=== PATIENT | female | born 1945 | race Caucasian/White ===

== ENCOUNTER 2019-06-10 21:52 | Inpatient (IN) | payer BC ==
[2019-06-11] MEDS ORDERED: ONDANSETRON 4 MG INJ IV (00:30)
[2019-06-11] MEDS ORDERED: morphine 2 MG INJ IV (00:30)
[2019-06-11] MEDS: CEFTRIAXONE 1 GM/50 ML (PMX) 50 ML IVPB ×2 (01:08→23:59)
[2019-06-11] MEDS: SOD CHLORIDE 0.9% 1,000 ML IV ×2 (01:08→11:59)
[2019-06-11] MEDS: ENOXAPARIN 40 MG/0.4 ML SYG SC (08:47)
[2019-06-11 10:12] LABS: ADD MAN DIFF? NO
[2019-06-11 10:20] LABS: BASOPHILS % 0.3 % (0.0-2.0); EOSINOPHILS # 0.1 10^3/ul (0.0-0.5); EOSINOPHILS % 1.8 % (0.0-7.0); HEMATOCRIT 30.5 % (37.0-47.0); HEMOGLOBIN 9.1 g/dl (12.0-16.0); LYMPHOCYTES # 1.1 10^3/ul (0.8-2.9); LYMPHOCYTES % 18.3 % (15.0-51.0); MEAN CORPUSCULAR HGB CONC 29.8 g/dl (32.0-37.0); MEAN CORPUSCULAR VOLUME 93.8 fl (82.0-101.0); MEAN PLATELET VOLUME 10.2 fl (7.4-10.4); MONOCYTE # 0.7 10^3/ul (0.3-0.9); MONOCYTES % 11.5 % (0.0-11.0); NEUTROPHIL # 4.1 10^3/ul (1.6-7.5); NEUTROPHILS % 67.8 % (39.0-77.0); PLATELET COUNT 284 10^3/UL (140-415); RED BLOOD COUNT 3.25 10^6/ul (4.20-5.40); RED CELL DISTRIBUTION WIDTH 15.8 % (11.5-14.5)
[2019-06-11] MEDS: IOHEXOL 14.3 MG(I)/ML (ADULT) BTL PO (10:28)
[2019-06-11 10:34] LABS: ANION GAP 6 (5-13); BLOOD UREA NITROGEN 10 mg/dl (7-20); CARBON DIOXIDE 26 mmol/L (21-31); CHLORIDE 107 mmol/L (97-110); CREATININE 0.72 mg/dl (0.44-1.00); GLUCOSE 92 mg/dl (70-220); POTASSIUM 3.5 mmol/L (3.5-5.1); SODIUM 139 mmol/L (135-144)
[2019-06-11 10:59] LABS: CALCIUM 14.3 mg/dl (8.4-10.2)
[2019-06-11] MEDS: SOD CHLORIDE 0.9% 100 ML (13:30)
[2019-06-11] MEDS: IOHEXOL 300MG/ML 150 ML BTL (13:31)
[2019-06-11] MEDS: PAMIDRONATE 60 MG in SOD CHLORIDE 0.9% 500 ML IV (14:30)
[2019-06-11] MEDS: ACETAMINOPHEN 325 MG TAB PO (23:59)
[2019-06-12] MEDS: SOD CHLORIDE 0.9% 1,000 ML IV ×4 (04:16→22:02)
[2019-06-12 05:58] LABS: ADD MAN DIFF? NO
[2019-06-12 06:06] LABS: BASOPHILS % 0.4 % (0.0-2.0); EOSINOPHILS # 0.2 10^3/ul (0.0-0.5); EOSINOPHILS % 2.8 % (0.0-7.0); HEMATOCRIT 27.4 % (37.0-47.0); HEMOGLOBIN 8.5 g/dl (12.0-16.0); LYMPHOCYTES # 1.2 10^3/ul (0.8-2.9); MEAN CORPUSCULAR HEMOGLOBIN 28.9 pg (29.0-33.0); MEAN CORPUSCULAR VOLUME 93.2 fl (82.0-101.0); MEAN PLATELET VOLUME 10.3 fl (7.4-10.4); MONOCYTE # 0.6 10^3/ul (0.3-0.9); MONOCYTES % 11.3 % (0.0-11.0); NEUTROPHIL # 3.3 10^3/ul (1.6-7.5); NEUTROPHILS % 62.1 % (39.0-77.0); PLATELET COUNT 253 10^3/UL (140-415); RED BLOOD COUNT 2.94 10^6/ul (4.20-5.40); RED CELL DISTRIBUTION WIDTH 15.5 % (11.5-14.5)
[2019-06-12 06:06] LABS: WHITE BLOOD COUNT 5.4 10^3/ul (4.8-10.8)
[2019-06-12 06:30] LABS: ANION GAP 5 (5-13); BLOOD UREA NITROGEN 8 mg/dl (7-20); CARBON DIOXIDE 26 mmol/L (21-31); CHLORIDE 105 mmol/L (97-110); CREATININE 0.57 mg/dl (0.44-1.00); GLUCOSE 89 mg/dl (70-220); POTASSIUM 3.2 mmol/L (3.5-5.1); SODIUM 136 mmol/L (135-144)
[2019-06-12 06:32] LABS: CALCIUM 13.6 mg/dl (8.4-10.2)
[2019-06-12 08:37] LABS: IONIZED CALCIUM 1.9 mmol/L (1.1-1.4)
[2019-06-12] MEDS: ENOXAPARIN 40 MG/0.4 ML SYG SC (08:43)
[2019-06-12] MEDS: AMLODIPINE 5 MG TAB PO ×2 (12:16→20:50)
[2019-06-12] MEDS: POTASSIUM CHLORIDE (SR) 20 MEQ TAB PO ×3 (12:34→20:50)
[2019-06-12] MEDS: ACETAMINOPHEN 325 MG TAB PO (18:29)
[2019-06-13] MEDS: CEFTRIAXONE 1 GM/50 ML (PMX) 50 ML IVPB (00:37)
[2019-06-13 07:20] LABS: ANION GAP 3 (5-13); BLOOD UREA NITROGEN 7 mg/dl (7-20); CARBON DIOXIDE 27 mmol/L (21-31); CHLORIDE 107 mmol/L (97-110); CREATININE 0.58 mg/dl (0.44-1.00); GLUCOSE 85 mg/dl (70-220); POTASSIUM 4.5 mmol/L (3.5-5.1); SODIUM 137 mmol/L (135-144)
[2019-06-13 07:22] LABS: CALCIUM 13.5 mg/dl (8.4-10.2)
[2019-06-13] MEDS: SOD CHLORIDE 0.9% 1,000 ML IV ×3 (07:45→20:59)
[2019-06-13] MEDS: ENOXAPARIN 40 MG/0.4 ML SYG SC (08:17)
[2019-06-13] MEDS: AMLODIPINE 5 MG TAB PO ×2 (08:18→21:22)
[2019-06-13] MEDS: PAMIDRONATE 90 MG in SOD CHLORIDE 0.9% 500 ML IV (13:07)
[2019-06-13] MEDS: BALSAM PERU/CASTOR OIL 60 GM TUBE TOP (15:45)
[2019-06-13] MEDS: traMADol 50 MG TAB PO (16:16)
[2019-06-13] MEDS: LACTULOSE 30ML CUP PO (17:01)
[2019-06-14] MEDS: CEFTRIAXONE 1 GM/50 ML (PMX) 50 ML IVPB (01:23)
[2019-06-14] MEDS: BALSAM PERU/CASTOR OIL 60 GM TUBE TOP (08:43)
[2019-06-14] MEDS: AMLODIPINE 5 MG TAB PO (08:43)
[2019-06-14] MEDS: traMADol 50 MG TAB PO (08:52)
[2019-06-14] MEDS: ENOXAPARIN 30 MG/0.3 ML SYG SC (09:24)
== END 2019-06-14 20:00 | DRG 641 ==
LOC: TEL 06-13 06:06
DX: E83.52 Hypercalcemia (principal); C34.92 Malignant neoplasm of unspecified part of left bronchus or lung; N39.0 Urinary tract infection, site not specified; C79.9 Secondary malignant neoplasm of unspecified site; I10 Essential (primary) hypertension
CPT/HCPCS: 70551; 71260; 74177; 80048; 82310; 82330; 83970; 85025; 97110; 97162; J2430

== ENCOUNTER 2019-06-17 13:39 | Inpatient (IN) | payer BC ==
[2019-06-17 14:15] LABS: ADD MAN DIFF? NO
[2019-06-17 14:20] LABS: WHITE BLOOD COUNT 6.1 10^3/ul (4.8-10.8)
[2019-06-17 14:20] LABS: BASOPHILS % 0.2 % (0.0-2.0); EOSINOPHILS # 0.1 10^3/ul (0.0-0.5); EOSINOPHILS % 1.6 % (0.0-7.0); HEMATOCRIT 28.5 % (37.0-47.0); HEMOGLOBIN 8.9 g/dl (12.0-16.0); LYMPHOCYTES # 1.6 10^3/ul (0.8-2.9); LYMPHOCYTES % 25.9 % (15.0-51.0); MEAN CORPUSCULAR HEMOGLOBIN 28.6 pg (29.0-33.0); MEAN CORPUSCULAR HGB CONC 31.2 g/dl (32.0-37.0); MEAN CORPUSCULAR VOLUME 91.6 fl (82.0-101.0); MEAN PLATELET VOLUME 9.8 fl (7.4-10.4); MONOCYTE # 0.7 10^3/ul (0.3-0.9); MONOCYTES % 11.6 % (0.0-11.0); NEUTROPHIL # 3.7 10^3/ul (1.6-7.5); NEUTROPHILS % 60.4 % (39.0-77.0); PLATELET COUNT 252 10^3/UL (140-415); RED BLOOD COUNT 3.11 10^6/ul (4.20-5.40); RED CELL DISTRIBUTION WIDTH 15.6 % (11.5-14.5)
[2019-06-17 14:38] LABS: ANION GAP 5 (5-13); BLOOD UREA NITROGEN 12 mg/dl (7-20); CARBON DIOXIDE 32 mmol/L (21-31); CHLORIDE 97 mmol/L (97-110); CREATININE 0.79 mg/dl (0.44-1.00); GLUCOSE 120 mg/dl (70-220); POTASSIUM 3.9 mmol/L (3.5-5.1); SODIUM 134 mmol/L (135-144)
[2019-06-17 14:50] LABS: TROPONIN-I 0.025 ng/ml (0.000-0.120)
[2019-06-17 14:56] LABS: CALCIUM 15.2 mg/dl (8.4-10.2)
[2019-06-17 14:58] LABS: IONIZED CALCIUM 2.2 mmol/L (1.1-1.4)
[2019-06-17] MEDS: SOD CHLORIDE 0.9% 1,000 ML IV (15:11)
[2019-06-17] MEDS ORDERED: ACETAMINOPHEN 325 MG TAB PO ×2 (16:00→16:30)
[2019-06-17] MEDS ORDERED: ONDANSETRON 4 MG INJ IV (16:00)
[2019-06-17] MEDS ORDERED: LACTULOSE 30ML CUP PO (16:30)
[2019-06-17] MEDS ORDERED: BISACODYL 10 MG SUPP PR (16:30)
[2019-06-17] MEDS ORDERED: ZOLPIDEM 5 MG TAB PO (16:30)
[2019-06-17] MEDS ORDERED: NA PHOSPHATE/BIPHOS 133 ML ENEMA PR (16:30)
[2019-06-17] MEDS: ZOLEDRONIC ACID 3 MG in SOD CHLORIDE 0.9% 100 ML IVPB (17:42)
[2019-06-17] MEDS: CALCITONIN SALMON INJ 200 UNITS/ML SYG SC (18:19)
[2019-06-17] MEDS: ENOXAPARIN 30 MG/0.3 ML SYG SC (18:19)
[2019-06-17] MEDS: ONDANSETRON 4 MG INJ IV (18:38)
[2019-06-17] MEDS: AMLODIPINE 5 MG TAB PO (21:58)
[2019-06-18 06:21] LABS: CALCIUM 14.3 mg/dl (8.4-10.2)
[2019-06-18] MEDS: SOD CHLORIDE 0.9% 1,000 ML IV ×2 (06:46→16:08)
[2019-06-18] MEDS: AMLODIPINE 5 MG TAB PO ×2 (09:16→21:22)
[2019-06-18] MEDS: CALCITONIN SALMON INJ 200 UNITS/ML SYG SC (10:55)
[2019-06-18] MEDS: ENOXAPARIN 30 MG/0.3 ML SYG SC (12:26)
[2019-06-18] MEDS: traMADol 50 MG TAB PO ×2 (16:13→22:41)
[2019-06-18] MEDS: FAMOTIDINE 20 MG TAB PO (21:22)
[2019-06-19] MEDS: SOD CHLORIDE 0.9% 1,000 ML IV ×2 (02:04→13:31)
[2019-06-19 05:17] LABS: ADD MAN DIFF? NO
[2019-06-19 05:19] LABS: BASOPHILS % 0.5 % (0.0-2.0); EOSINOPHILS # 0.1 10^3/ul (0.0-0.5); EOSINOPHILS % 2.1 % (0.0-7.0); LYMPHOCYTES # 1.4 10^3/ul (0.8-2.9); LYMPHOCYTES % 23.2 % (15.0-51.0); MEAN CORPUSCULAR HEMOGLOBIN 28.7 pg (29.0-33.0); MEAN CORPUSCULAR HGB CONC 30.8 g/dl (32.0-37.0); MEAN CORPUSCULAR VOLUME 93.2 fl (82.0-101.0); MEAN PLATELET VOLUME 10.3 fl (7.4-10.4); MONOCYTE # 0.8 10^3/ul (0.3-0.9); MONOCYTES % 12.6 % (0.0-11.0); NEUTROPHIL # 3.8 10^3/ul (1.6-7.5); NEUTROPHILS % 61.4 % (39.0-77.0); PLATELET COUNT 241 10^3/UL (140-415); RED BLOOD COUNT 2.79 10^6/ul (4.20-5.40); RED CELL DISTRIBUTION WIDTH 15.5 % (11.5-14.5)
[2019-06-19 05:19] LABS: WHITE BLOOD COUNT 6.1 10^3/ul (4.8-10.8)
[2019-06-19 05:53] LABS: ALANINE AMINOTRANSFERASE 12 IU/L (13-69); ALBUMIN 2.8 g/dl (3.3-4.9); ALBUMIN/GLOBULIN RATIO 0.84; ALKALINE PHOSPHATASE 54 IU/L (42-121); ANION GAP 5 (5-13); ASPARTATE AMINO TRANSFERASE 22 IU/L (15-46); BILIRUBIN,INDIRECT 0.2 mg/dl (0-1.1); BILIRUBIN,TOTAL 0.2 mg/dl (0.2-1.3); BLOOD UREA NITROGEN 9 mg/dl (7-20); CARBON DIOXIDE 26 mmol/L (21-31); CHLORIDE 108 mmol/L (97-110); CREATININE 0.72 mg/dl (0.44-1.00); GLUCOSE 87 mg/dl (70-220); POTASSIUM 3.4 mmol/L (3.5-5.1); SODIUM 139 mmol/L (135-144); TOTAL PROTEIN 6.1 g/dl (6.1-8.1)
[2019-06-19 05:56] LABS: CALCIUM 13.3 mg/dl (8.4-10.2)
[2019-06-19] MEDS: FAMOTIDINE 20 MG TAB PO ×2 (09:19→22:01)
[2019-06-19] MEDS: AMLODIPINE 5 MG TAB PO ×2 (09:20→22:01)
[2019-06-19] MEDS: ENOXAPARIN 30 MG/0.3 ML SYG SC (09:22)
[2019-06-19] MEDS: CALCITONIN SALMON INJ 200 UNITS/ML SYG SC (10:00)
[2019-06-19] MEDS ORDERED: POTASSIUM CHLORIDE 20 MEQ in SOD CHLORIDE 0.9% 1,000 ML IV (14:22)
[2019-06-19] MEDS: NS + KCL 20 MEQ 1,000 ML IV (16:47)
[2019-06-19] MEDS: traMADol 50 MG TAB PO (16:50)
[2019-06-20] MEDS: NS + KCL 20 MEQ 1,000 ML IV ×2 (04:07→11:00)
[2019-06-20] MEDS: FAMOTIDINE 20 MG TAB PO (08:43)
[2019-06-20] MEDS: AMLODIPINE 5 MG TAB PO (08:43)
[2019-06-20] MEDS: ENOXAPARIN 30 MG/0.3 ML SYG SC (08:48)
[2019-06-20 08:53] LABS: CALCIUM 12.8 mg/dl (8.4-10.2)
[2019-06-20] MEDS: CALCITONIN SALMON INJ 200 UNITS/ML SYG SC (11:05)
[2019-06-20] MEDS: ONDANSETRON 4 MG INJ IV (12:07)
[2019-06-20] MEDS: traMADol 50 MG TAB PO (12:13)
== END 2019-06-20 18:49 | DRG 641 ==
LOC: E/R 13:39 → PP2 15:59
DX: E83.52 Hypercalcemia (principal); C34.90 Malignant neoplasm of unspecified part of unspecified bronchus or lung; E44.1 Mild protein-calorie malnutrition; R64 Cachexia; Z68.20 Body mass index [BMI] 20.0-20.9, adult; I10 Essential (primary) hypertension; K59.00 Constipation, unspecified; D50.9 Iron deficiency anemia, unspecified; R44.1 Visual hallucinations
CPT/HCPCS: 36415; 80048; 80053; 82310; 82330; 84484; 85025; 87081; 93005; 96360; 99285-25

== ENCOUNTER 2019-07-03 12:47 | Inpatient (IN) | payer BC ==
[2019-07-03 13:10] LABS: ADD MAN DIFF? NO
[2019-07-03 13:13] LABS: BASOPHILS % 0.1 % (0.0-2.0); EOSINOPHILS % 0.1 % (0.0-7.0); HEMATOCRIT 33.7 % (37.0-47.0); HEMOGLOBIN 10.5 g/dl (12.0-16.0); LYMPHOCYTES # 1.4 10^3/ul (0.8-2.9); LYMPHOCYTES % 9.2 % (15.0-51.0); MEAN CORPUSCULAR HEMOGLOBIN 28.1 pg (29.0-33.0); MEAN CORPUSCULAR HGB CONC 31.2 g/dl (32.0-37.0); MEAN CORPUSCULAR VOLUME 90.1 fl (82.0-101.0); MEAN PLATELET VOLUME 9.8 fl (7.4-10.4); MONOCYTE # 1.2 10^3/ul (0.3-0.9); NEUTROPHILS % 82.2 % (39.0-77.0); PLATELET COUNT 259 10^3/UL (140-415); RED BLOOD COUNT 3.74 10^6/ul (4.20-5.40); RED CELL DISTRIBUTION WIDTH 15.9 % (11.5-14.5)
[2019-07-03 13:13] LABS: WHITE BLOOD COUNT 14.7 10^3/ul (4.8-10.8)
[2019-07-03 13:32] LABS: ALANINE AMINOTRANSFERASE 12 IU/L (13-69); ALBUMIN 3.9 g/dl (3.3-4.9); ALKALINE PHOSPHATASE 80 IU/L (42-121); ANION GAP 8 (5-13); ASPARTATE AMINO TRANSFERASE 27 IU/L (15-46); BILIRUBIN,INDIRECT 0.5 mg/dl (0-1.1); BILIRUBIN,TOTAL 0.5 mg/dl (0.2-1.3); BLOOD UREA NITROGEN 28 mg/dl (7-20); CARBON DIOXIDE 33 mmol/L (21-31); CHLORIDE 98 mmol/L (97-110); CREATININE 1.11 mg/dl (0.44-1.00); GLUCOSE 120 mg/dl (70-220); LIPASE 43 U/L (23-300); SODIUM 139 mmol/L (135-144); TOTAL PROTEIN 7.8 g/dl (6.1-8.1)
[2019-07-03 13:33] LABS: INR 0.96; PROTIME 12.9 Sec (11.9-14.9)
[2019-07-03] MEDS: SOD CHLORIDE 0.9% 1,000 ML IV ×3 (13:33→20:13)
[2019-07-03] MEDS: ONDANSETRON 4 MG INJ IV (13:33)
[2019-07-03 13:38] LABS: ADD UMIC YES; UR ASCORBIC ACID 20 mg/dL (NEGATIVE); UR BACTERIA FEW /HPF (NONE SEEN); UR BILIRUBIN (Dip) NEGATIVE (NEGATIVE); UR BLOOD (Dip) NEGATIVE (NEGATIVE); UR CLARITY SLIGHTLY CLOUDY (CLEAR); UR COLOR YELLOW (YELLOW); UR GLUCOSE (Dip) NEGATIVE (NEGATIVE); UR KETONES (Dip) NEGATIVE (NEGATIVE); UR LEUKOCYTE ESTERASE (Dip) 1+ Leu/ul (NEGATIVE); UR MUCUS FEW /HPF (NONE SEEN); UR NITRITE (Dip) NEGATIVE (NEGATIVE); UR RBC 12 /HPF (0-5); UR SPECIFIC GRAVITY (Dip) 1.011 (1.003-1.030); UR SQUAMOUS EPITHELIAL CELL FEW /HPF (FEW); UR TOTAL PROTEIN (Dip) 1+ mg/dl (NEGATIVE); UR UROBILINOGEN (Dip) NEGATIVE (NEGATIVE); UR WBC 44 /HPF (0-5)
[2019-07-03 13:42] LABS: TROPONIN-I 0.079 ng/ml (0.000-0.120)
[2019-07-03 14:03] LABS: CALCIUM 19.7 mg/dl (8.4-10.2)
[2019-07-03] MEDS: CEFEPIME 1GM/50 ML (PMX) 50 ML IVPB (14:19)
[2019-07-03] MEDS: LACTATED RINGER'S 1,000 ML IV (14:19)
[2019-07-03 15:46] LABS: PARTIAL THROMBOPLASTIN TIME 22.4 Sec (23.0-35.0)
[2019-07-03] MEDS ORDERED: ONDANSETRON 4 MG INJ IV (18:30)
[2019-07-03] MEDS ORDERED: HYDROmorphONE 0.5 MG/0.5 ML SYG IV (18:30)
[2019-07-03] MEDS ORDERED: PAMIDRONATE 90 MG in SOD CHLORIDE 0.9% 500 ML IV (18:30)
[2019-07-03] MEDS: AMLODIPINE 5 MG TAB PO (20:12)
[2019-07-04] MEDS: SOD CHLORIDE 0.9% 1,000 ML IV ×3 (02:30→10:30)
[2019-07-04] MEDS: [UNRECOGNIZED DRUG - REMARK] XX ×2 (08:30→16:30)
[2019-07-04] MEDS: AMLODIPINE 5 MG TAB PO ×2 (08:32→21:06)
[2019-07-04] MEDS: CEFTRIAXONE 1 GM/50 ML (PMX) 50 ML IVPB (08:32)
[2019-07-04] MEDS: POLYETHYLENE GLYCOL 17 GM PACKET PO (08:32)
[2019-07-04] MEDS: ENOXAPARIN 30 MG/0.3 ML SYG SC (08:33)
[2019-07-04] MEDS: ACETAMINOPHEN 325 MG TAB PO (10:44)
[2019-07-04 11:25] LABS: ANION GAP 8 (5-13); BLOOD UREA NITROGEN 19 mg/dl (7-20); CARBON DIOXIDE 27 mmol/L (21-31); CHLORIDE 104 mmol/L (97-110); CREATININE 0.89 mg/dl (0.44-1.00); GLUCOSE 115 mg/dl (70-220); SODIUM 139 mmol/L (135-144)
[2019-07-04 11:40] LABS: CALCIUM 14.8 mg/dl (8.4-10.2); POTASSIUM 2.7 mmol/L (3.5-5.1)
[2019-07-04] MEDS: CALCITONIN SALMON INJ 200 UNITS/ML SYG SC (11:41)
[2019-07-04] MEDS: SOD CHLORIDE 0.9% IVPB (11:41)
[2019-07-04] MEDS: ZOLEDRONIC ACID IVPB (11:41)
[2019-07-04] MEDS: POTASSIUM CHLORIDE (SR) 20 MEQ TAB PO ×2 (13:18→21:06)
[2019-07-04] MEDS: POTASSIUM CHLORIDE 30 MEQ in SOD CHLORIDE 0.9% 1,000 ML IV ×2 (14:17→21:52)
[2019-07-04] MEDS ORDERED: PAMIDRONATE 90 MG in SOD CHLORIDE 0.9% 500 ML IV (16:00)
[2019-07-05] MEDS: [UNRECOGNIZED DRUG - REMARK] XX ×2 (00:30→08:24)
[2019-07-05] MEDS: POTASSIUM CHLORIDE 30 MEQ in SOD CHLORIDE 0.9% 1,000 ML IV ×2 (05:26→14:14)
[2019-07-05 06:47] LABS: ADD MAN DIFF? NO
[2019-07-05 06:52] LABS: BASOPHILS % 0.2 % (0.0-2.0); EOSINOPHILS % 0.2 % (0.0-7.0); HEMOGLOBIN 9.4 g/dl (12.0-16.0); MEAN CORPUSCULAR HEMOGLOBIN 27.7 pg (29.0-33.0); MEAN CORPUSCULAR HGB CONC 30.3 g/dl (32.0-37.0); MEAN CORPUSCULAR VOLUME 91.4 fl (82.0-101.0); MEAN PLATELET VOLUME 10.4 fl (7.4-10.4); NEUTROPHIL # 10.3 10^3/ul (1.6-7.5); NEUTROPHILS % 83.2 % (39.0-77.0); PLATELET COUNT 253 10^3/UL (140-415); RED BLOOD COUNT 3.39 10^6/ul (4.20-5.40)
[2019-07-05 06:52] LABS: WHITE BLOOD COUNT 12.4 10^3/ul (4.8-10.8)
[2019-07-05 07:09] LABS: ANION GAP 9 (5-13); BLOOD UREA NITROGEN 14 mg/dl (7-20); CALCIUM 12.9 mg/dl (8.4-10.2); CARBON DIOXIDE 25 mmol/L (21-31); CHLORIDE 110 mmol/L (97-110); CREATININE 0.82 mg/dl (0.44-1.00); GLUCOSE 80 mg/dl (70-220); POTASSIUM 3.3 mmol/L (3.5-5.1); SODIUM 144 mmol/L (135-144)
[2019-07-05] MEDS: POLYETHYLENE GLYCOL 17 GM PACKET PO (08:24)
[2019-07-05] MEDS: AMLODIPINE 5 MG TAB PO ×2 (08:25→20:57)
[2019-07-05] MEDS: POTASSIUM CHLORIDE (SR) 20 MEQ TAB PO ×2 (08:26→12:00)
[2019-07-05] MEDS: CEFTRIAXONE 1 GM/50 ML (PMX) 50 ML IVPB (08:27)
[2019-07-05] MEDS: ENOXAPARIN 30 MG/0.3 ML SYG SC (08:28)
[2019-07-05] MEDS: CALCITONIN SALMON INJ 200 UNITS/ML SYG SC (08:35)
== END 2019-07-05 23:10 | disposition home or self-care (01) | DRG 641 ==
LOC: E/R 12:47 → TEL 14:09
DX: E83.52 Hypercalcemia (principal); E44.0 Moderate protein-calorie malnutrition; N39.0 Urinary tract infection, site not specified; Z68.1 Body mass index [BMI] 19.9 or less, adult; C34.32 Malignant neoplasm of lower lobe, left bronchus or lung; C78.01 Secondary malignant neoplasm of right lung; E86.0 Dehydration; F03.90 Unspecified dementia, unspecified severity, without behavioral disturbance, psychotic disturbance, mood disturbance, and anxiety; I10 Essential (primary) hypertension; R62.7 Adult failure to thrive; Z87.891 Personal history of nicotine dependence; E87.6 Hypokalemia; Z95.5 Presence of coronary angioplasty implant and graft
CPT/HCPCS: 36415; 71045; 80048; 80053; 81001; 82310; 83690; 84484; 85025; 85610; 85730; 86850; 86900; 86901; 87086; 93005; 96361; 96374; 99285-25; J2430